=== PATIENT | male | born 1960 | race Caucasian/White ===

== ENCOUNTER 2017-03-29 04:47 | Inpatient (IN) ==
[2017-03-21 14:54] LABS: MANUAL DIFF NEEDED? NO
[2017-03-21 14:57] LABS: BASO% 0.6 % (0.0-0.8); EOS# 0.14 X1000 (0.0-0.7); EOS% 1.6 % (0.0-10.0); HEMOGLOBIN 14.7 g/dL (14.0-18.0); IMM GRAN# 0.02 X1000 (0.0-0.04); IMM GRAN% 0.2 % (0.0-0.5); LYMPH# 2.19 X1000 (1.2-3.4); LYMPH% 24.6 % (20.5-51.1); MCH 32.2 PG (27-31); MCHC 35.9 g/dL (33-37); MCV 89.7 FL (81-99); MONO# 0.85 X1000 (0.11-0.59); MONO% 9.5 % (1.7-9.3); MPV 9.7 FL (7.4-10.4); NEUT% 63.5 % (42.2-75.2); PLT 218 X1000 (130-400); RBC 4.57 XMIL (4.7-6.1)
[2017-03-21 15:21] LABS: AGAP 10; BUN 11 mg/dL (8-22); CHLORIDE 103 mmol/L (98-107); COSMO 286; POTASSIUM 3.2 mmol/L (3.5-5.1); SODIUM 144 mmol/L (136-145); TCO2 31 mmol/L (25-35)
[2017-03-29] MEDS ORDERED: FENTANYL ONE (05:51)
[2017-03-29] MEDS ORDERED: VERSED ONE (05:51)
[2017-03-29] MEDS ORDERED: DIPRIVAN 1% ONE (05:52)
[2017-03-29] MEDS ORDERED: NEOSTIGMINE ONE (05:53)
[2017-03-29] MEDS ORDERED: NORCURON ONE (05:54)
[2017-03-29] MEDS ORDERED: NEO-SYNEPHRINE ONE (05:54)
[2017-03-29] MEDS ORDERED: ZOFRAN ONE (05:54)
[2017-03-29] MEDS ORDERED: XYLOCAINE-MPF 2% ONE (05:54)
[2017-03-29] MEDS ORDERED: OFIRMEV 1000 MG/ISOTONIC SOLN 1,000 MG/100 ML BOTTLE ONE (05:54)
[2017-03-29] MEDS ORDERED: STERILE WATER INJ. ONE (05:54)
[2017-03-29] MEDS ORDERED: QUELICIN (DOSE) ONE (05:54)
[2017-03-29] MEDS ORDERED: ROBINUL ONE (05:54)
[2017-03-29] MEDS ORDERED: LR 1,000 ML ONE ×3 (05:59→10:23)
[2017-03-29] MEDS ORDERED: REGLAN ONE (06:00)
[2017-03-29] MEDS ORDERED: ENTEREG ONE (06:00)
[2017-03-29] MEDS ORDERED: PEPCID ONE (06:00)
[2017-03-29] MEDS ORDERED: INVANZ 1 GM/NS 1 GM/50 ML IVPB ONE (06:01)
[2017-03-29] MEDS ORDERED: XYLOCAINE-MPF 1%/EPI 1:200,000 ONE (06:14)
[2017-03-29] MEDS ORDERED: MARCAINE 0.25% PF ONE (06:15)
[2017-03-29] MEDS ORDERED: EXPAREL 1.3% ONE (07:23)
[2017-03-29] MEDS ORDERED: NAROPIN 0.5% ONE (07:23)
[2017-03-29] MEDS ORDERED: MORPHINE ONE (07:52)
[2017-03-29 09:16] LABS: URINE MICRO REVIEW NEEDED? NO; URINE SOURCE CATH
[2017-03-29 09:21] LABS: BILIRUBIN URINE NEGATIVE (NEGATIVE); BLOOD URINE NEGATIVE (NEGATIVE); COLOR YELLOW; GLUCOSE URINE NEGATIVE (NEGATIVE); LEUKOCYTES URINE NEGATIVE (NEGATIVE); NITRITE URINE NEGATIVE (NEGATIVE); PH URINE 7.5; PROTEIN URINE TRACE mg/dL (NEGATIVE); SP GRAVITY URINE 1.024; TURBIDITY URINE CLEAR (CLEAR); UROBILINOGEN URINE 2 mg/dL (NORMAL)
[2017-03-29 09:22] LABS: UR EPITHELIAL CELLS <10 /HPF (<10); URINE BACTERIA NEGATIVE /HPF; URINE WBC <10 /HPF (<10)
--- NOTE | 2017-03-29 11:09 | OPERATIVE NOTE ---
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 PROCEDURE PERFORMED: Laparoscopic right colectomy. ESTIMATED BLOOD LOSS: 30 mL. SPECIMENS: Right colon. ANESTHESIA: General with a tap block. INDICATION: A 56-year-old male, who on screening colonoscopy was known to have an hepatic flexure polyp. There were attempts at endoscopic removal and was observed for several months and persisted. The lesion was tattooed and pathology showed tubulovillous adenoma with high-grade dysplasia. OPERATIVE FINDINGS: There was no evidence of metastatic disease. No other abnormalities in the abdominal cavity. Previous appendectomy was noted with some adhesions here. There was a tattooed area just distal to the hepatic flexure directly in line with the gallbladder. OPERATIVE NOTE: Risks, benefits, alternatives discussed with the patient. He consented to the procedure. He was seen preoperatively and surgery to be performed was confirmed. He was taken to the operating room, placed in supine position. General anesthesia was induced. Preincisional antibiotics were administered. Young catheter was placed. An orogastric tube was placed. Transverse abdominis block was performed by anesthesia. For details of this please see their operative note with Exparel. After this, his abdomen is prepped with chlorhexidine solution and draped in sterile fashion. There was a slight bump on the right side to facilitate exposure during the laparoscopic portion of the operation. After his abdomen is prepped and draped we performed a time-out and a midline incision just above the umbilicus was made and carried down to the level of the fascia. The fascia was elevated and incised along midline and was entered in an open controlled fashion. A 12 mm Thao trocar was placed. We inspected the abdomen. There is no injury after insufflating. We then placed a 5 mm trocar in suprapubic location and a 12 mm trocar in the left lower quadrant under direct visualization lateral to the inferior epigastric vessels. He tolerated all this well. We began mobilizing some of his adhesions from his appendectomy, identified the teres ligament. On the anti- mesenteric fat on the terminal ileum, we elevated this. This identified the ileocolic pedicle. We dissected this out and encircled this. We then used a vascular load on the Endo KIM stapler to divide this. Hemostasis was noted. We then bluntly took down the right colon mesentery at the level of the duodenum and the barrier in the mesocolon. We protected the duodenum and widely mobilized the right colon. We then turned our attention laterally and did a lateral mobilization along the white line of Toldt protecting the retroperitoneal structures. We did this successfully up to the level of the hepatic flexure. We then continued our dissection around the hepatic flexure working both medially and cephalad. Protecting the duodenum we dissected this down to an area distal to the ink blot and this extended up to the middle colic vessels but we did not have to divide the middle colic vessels. We did majority of our dissection bluntly and with the LigaSure device. We inspected abdomen and felt like we had adequately mobilized the specimen, and there was confirmed hemostasis in the colon bed. We then desufflated the abdomen, extended our supraumbilical incision several cm and were able to bring out the terminal ileum in the colon specimen. Through this incision we then mobilized a little bit more of the omentum off of the transverse colon to provide an adequate distal margin. Then using a purple load in the Endo-KIM stapler we created a [id number], functional end-to-end anastomosis between the terminal ileum and transverse colon. Placed Ari clamps on the specimen side, approximated the antimesenteric portions. We then placed a crotch-stitch distally. Made an enterotomy on the antimesenteric side of the terminal ileum and on the colon side. There was an Jermain wound protector placed as well to protect the wound edges. Then in a [id number] fashion we created a common enterotomy with a 60mm purple load Endo-KIM stapler. This was widely patent and hemostasis was noted but there was good perfusion of the distal aspects of the colon. We then placed Allis clamps on the common enterotomy now and with 2 fires of a purple load stapler we were able to close the common enterotomy and resect the specimen in its entirety. There is good perfusion with mesentery and brisk pulse up to the edges. The corners were healthy. There was only a small mesenteric defect that did not warrant closure and there is no twisting of terminal ileum. We placed omentum over this after inspecting it for several minutes to ensure that it remained pink. It was widely patent on palpation. We placed omentum over it, placed it back in the abdomen in neutral position. Then changed our gloves, removed the Jermain wound protector. We closed the fascia with a running #1 PDS suture. I irrigated the superficial wound, closed the skin with 4-0 Monocryl. Left lower quadrant 12 mm incision was closed with interrupted 0 Vicryl sutures at the fascia level and skin was closed with 4-0 Monocryl subcuticular fashion. Dermabond was applied. Tolerated the procedure well. Removed his nasogastric tube. Kept his Young. He was awoken and transferred to PACU in good condition. I spoke with the family. Counts correct x2 at the end case. I did open the specimen as well and confirmed that we had at least a 5 cm margin distal to this sessile polyp in the hepatic flexure. cc: Kg Boyer MD MTDD
[2017-03-29] MEDS ORDERED: ULTRAM PO PRN (11:35)
[2017-03-29] MEDS ORDERED: ZOFRAN IV PRN (11:35)
[2017-03-29] MEDS: OFIRMEV 1000 MG/ISOTONIC SOLN 1,000 MG/100 ML BOTTLE IV SCH ×2 (13:34→20:39)
[2017-03-29] MEDS: LR 1,000 ML IV SCH ×2 (13:35→20:39)
[2017-03-29] MEDS ORDERED: BLISTEX MEDICATED BERRY LIP BALM TOP PRN (14:43)
[2017-03-29] MEDS: NORVASC PO SCH (20:36)
[2017-03-29] MEDS: PERIDEX MT SCH (20:37)
[2017-03-29] MEDS ORDERED: ENTEREG PO SCH (21:00)
[2017-03-30] MEDS: OFIRMEV 1000 MG/ISOTONIC SOLN 1,000 MG/100 ML BOTTLE IV SCH ×4 (01:44→20:00)
[2017-03-30] MEDS: PROTONIX PO SCH (06:23)
[2017-03-30 07:48] LABS: BASO% 0.1 % (0.0-0.8); HEMATOCRIT 38.9 % (42.0-52.0); HEMOGLOBIN 13.6 g/dL (14.0-18.0); IMM GRAN# 0.04 X1000 (0.0-0.04); IMM GRAN% 0.2 % (0.0-0.5); LYMPH# 1.03 X1000 (1.2-3.4); LYMPH% 6.4 % (20.5-51.1); MANUAL DIFF NEEDED? NO; MCH 31.6 PG (27-31); MCV 90.5 FL (81-99); MONO# 1.28 X1000 (0.11-0.59); MONO% 7.9 % (1.7-9.3); MPV 9.5 FL (7.4-10.4); NEUT% 85.4 % (42.2-75.2); PLT 225 X1000 (130-400)
[2017-03-30 08:04] LABS: AGAP 11; BUN 14 mg/dL (8-22); CALCIUM 8.6 mg/dL (8.8-10.2); CHLORIDE 101 mmol/L (98-107); COSMO 284; POTASSIUM 4.1 mmol/L (3.5-5.1); SODIUM 142 mmol/L (136-145); TCO2 30 mmol/L (25-35)
[2017-03-30] MEDS: PERIDEX MT SCH ×2 (09:11→20:00)
[2017-03-30] MEDS: ASPIRIN PO SCH (09:11)
[2017-03-30] MEDS: ENTEREG PO SCH ×2 (09:11→20:01)
[2017-03-30] MEDS: MAG-OX PO SCH (09:11)
[2017-03-30] MEDS: LOVENOX SUBQ SCH (09:11)
--- NOTE | 2017-03-30 18:33 | PROGRESS NOTE ---
DATE: 03/30/2017 SUBJECTIVE: He feels well. Pain has been well controlled. He is sitting in a chair. Young was removed. He had not voided yet. No nausea, vomiting. Tolerating some clear liquids. OBJECTIVE: Vital signs: No fevers. Temperature is 98.2 degrees. Pulse 56, blood pressure 157/87, O2 saturation 97% on room air. General: He is alert. Abdomen: Soft, appropriately tender. Incision is clean, dry, intact. LABORATORIES: White count 16, hematocrit 38. Creatinine is 0.9. ASSESSMENT AND PLAN: A 56-year-old male, status post laparoscopic right colectomy. Overall, he is doing well. He is progressing as expected. His pain is controlled with Ofirmev alone. We will advance his diet to soft today, hep-lock his fluids. We will continue Entereg, Ofirmev and his home medications. We do have him on aspirin, holding his Plavix for now, and will continue per the ERAS protocol. I have encouraged him to be out of bed. We will remove his Young today. Encouraged him go slow with his diet. If he gets full or nauseated, to slow down and we can even restart his IV fluids if needed. He is on Lovenox and a PPI. We will continue to follow along, but overall he is doing very well. cc: Kg Boyer MD
[2017-03-30] MEDS: NORVASC PO SCH (20:01)
[2017-03-30] MEDS: LIPITOR PO SCH (20:01)
[2017-03-31] MEDS: OFIRMEV 1000 MG/ISOTONIC SOLN 1,000 MG/100 ML BOTTLE IV SCH ×3 (06:51→15:00)
[2017-03-31] MEDS: PROTONIX PO SCH (06:51)
[2017-03-31] MEDS: MAG-OX PO SCH (08:50)
[2017-03-31] MEDS: ASPIRIN PO SCH (08:50)
[2017-03-31] MEDS: PERIDEX MT SCH ×2 (08:50→20:59)
[2017-03-31] MEDS: ENTEREG PO SCH (08:50)
[2017-03-31] MEDS: LOVENOX SUBQ SCH (08:50)
--- NOTE | 2017-03-31 12:02 | PROGRESS NOTE ---
DATE: 03/31/2017 SUBJECTIVE: Feels well. Pain is controlled. He is having bowel movements and passing gas. OBJECTIVE: Vital signs: No fevers. No tachycardia. Blood pressure 139/80. Abdomen: Soft, nontender. Incisions clean, dry, intact. LABS: No new labs. ASSESSMENT AND PLAN: This is a 56-year-old male status post laparoscopic right colectomy. He is doing well. He has had return of bowel function on day 2. We will monitor him. He is on diet. We will stop his fluids. Encourage him to ambulate. If he is feeling well we may let him go home this evening, but he may require observation until tomorrow. cc: Kg Boyer MD
[2017-03-31] MEDS ORDERED: TYLENOL PO PRN (17:39)
[2017-03-31] MEDS ORDERED: MOTRIN PO PRN (17:39)
[2017-03-31] MEDS: NORVASC PO SCH (20:59)
[2017-03-31] MEDS: LIPITOR PO SCH (20:59)
[2017-04-01] MEDS: PROTONIX PO SCH (06:49)
[2017-04-01 07:58] VITALS: BP 120/67
[2017-04-01] MEDS: PERIDEX MT SCH (08:38)
[2017-04-01] MEDS: ASPIRIN PO SCH (08:39)
[2017-04-01] MEDS: MAG-OX PO SCH (08:39)
--- NOTE | 2017-04-02 13:13 | DISCHARGE SUMMARY ---
ADMISSION DATE: 03/29/2017 DISCHARGE DATE: 04/01/2017 ADMITTING DIAGNOSIS: Hepatic flexure colon polyp. DISCHARGE DIAGNOSIS: Hepatic flexure colon polyp. PROCEDURE PERFORMED: Laparoscopic right colectomy. HISTORY OF PRESENT ILLNESS: This is a 56-year-old male who has had a polyp at the hepatic flexure that was unresectable. Endoscopically it showed high-grade dysplasia and right colectomy was indicated. HOSPITAL COURSE: He was seen the day of surgery and the surgery to be performed was confirmed. He was cleared by anesthesia. He has taken to the operating room for the above procedure. For details, please see dictated operative note. Postoperatively he did well. Day 1 his Young was removed. He began having bowel function by day 2. Postop labs looked okay. His diet was advanced. He was tolerating this. His pain was controlled without any narcotic medication. He did have a small bloody bowel movement on postop day 3 but his hematocrit was stable and it was mostly consist with old blood from the surgery. Incision looked clean, dry, and intact. He was ambulating and voiding without difficulty. His hematocrit was stable at 37. He was felt safe for discharge home. FOLLOWUP: Follow-up appointment with me in the next 1-2 weeks. DISPOSITION: Home to self-care. DISCHARGE MEDICATION: Continue taking his home medication and given a prescription for Rudd. I did encourage him to hold his Plavix for at least a week postoperatively and that has been okay with cardiology. DISCHARGE INSTRUCTIONS: He was given detailed postoperative instructions, what to look out for and what to call for and activity restrictions. He will continue to push fluids. Maintain on a GI soft diet. cc: gK Boyer MD
== END 2017-04-01 10:29 | disposition home or self-care (01) ==
LOC: SURHOLD 04:47 → 4N 10:20
PROVIDERS: ADMIT Surgery; ATTEND Surgery